=== PATIENT | male | born 1965 | race Caucasian/White ===

== ENCOUNTER 2016-08-12 09:08 | Observation (INO) | payer OTHER ==
[~2016-08-12] VITALS: Ht 175.3 cm; Wt 81.2 kg
[2016-08-12] VITALS (11 sets, daily range): BP systolic 109–206; BP diastolic 75–122; PULSE 71–115; RESP 17–20; TEMP 97.4–98; O2SAT 95–98
[~2016-08-12 09:08] MED LIST: CYCL-36 PO; LORTA5 PO; LOSA25TA31 PO; PANT20 PO
[2016-08-12] MEDS ORDERED: ASPI1TAB69 PO (09:24)
[2016-08-12] MEDS ORDERED: PANT20TA2 PO (09:24)
[2016-08-12] MEDS ORDERED: LOSA25TA PO (09:24)
--- NOTE | 2016-08-12 09:28 | PD ---
HPI Chief Complaint: Chest Pain Time Seen by Provider: 09:17 Travel History International Travel<30 days: No Contact w/Intl Traveler<30days: No Traveled to known affect area: No History of Present Illness HPI This patient complains of chest pain. He is intermittent spells for the last 7 days. Last about 10 minutes and resolved. Describes it as an aching pressure in the left mid chest. No shortness of breath or fever or cough or chest wall injury. He says he had negative stress test 5 years ago. He takes a baby aspirin daily for a carotid ultrasound finding of around 40% blockage but no known coronary issues. Symptoms severity is moderate. No alleviating factors. PFSH Past Medical History Heart Rhythm Problems: No Cardiac Catheterization: Yes Cardiovascular Problems: Yes (HTN) High Cholesterol: Yes Congestive Heart Failure: No Diabetes: No Diminished Hearing: No GERD: Yes Hypertension: Yes Immunizations Current: Yes Influenza Vaccination: No PNEUMOCCOCAL Vaccine (Year): 2 Past Surgical History Coronary Artery Bypass Graft: No Social History Alcohol Use: Yes (0CC) Tobacco Use: Yes (1 PPD) Substance Use: No Allergies-Medications (Allergen,Severity, Reaction): Coded Allergies: Lisinopril (Verified Allergy, Severe, SWELLING, 08/12/16) Reported Meds & Prescriptions Reported Meds & Active Scripts Active Reported Aspirin 81 Mg Tabdr 81 Mg PO DAILY Pantoprazole (Pantoprazole Sodium) 20 Mg Tab 20 Mg PO DAILY Losartan (Losartan Potassium) 25 Mg Tab 25 Mg PO DAILY Review of Systems General / Constitutional: No: Fever Eyes: No: Visual changes HENT: No: Headaches Cardiovascular: Positive: Chest Pain or Discomfort Respiratory: No: Shortness of Breath Gastrointestinal: No: Abdominal Pain Genitourinary: No: Dysuria Musculoskeletal: No: Pain Skin: No Rash Neurologic: No: Weakness Psychiatric: No: Depression Endocrine: No: Polydipsia Hematologic/Lymphatic: No: Easy Bruising Physical Exam Narrative GENERAL: Well-nourished, well-developed patient in no apparent distress. SKIN: Warm and dry. HEAD: Atraumatic. Normocephalic. EYES: Pupils equal and round. No scleral icterus. No injection or drainage. ENT: No nasal bleeding or discharge. Mucous membranes pink and moist. NECK: Trachea midline. No JVD. CARDIOVASCULAR: Regular rate and rhythm. No murmur appreciated. RESPIRATORY: No accessory muscle use. Clear to auscultation. Breath sounds equal bilaterally. GASTROINTESTINAL: Abdomen soft, non-tender, nondistended. Hepatic and splenic margins not palpable. MUSCULOSKELETAL: No obvious deformities. No clubbing. No cyanosis. No edema. NEUROLOGICAL: Awake and alert. No obvious cranial nerve deficits. Motor grossly within normal limits. Normal speech. PSYCHIATRIC: Appropriate mood and affect; insight and judgment normal. Data Data Last Documented VS Vital Signs Date Time Temp Pulse Resp B/P Pulse Ox O2 Delivery O2 Flow Rate FiO2 08/12/16 09:45 96 18 144/93 95 Room Air 08/12/16 09:11 98.0 Orders Electrocardiogram (08/12/16 09:23) Basic Metabolic Panel (Bmp) (08/12/16 09:23) Ckmb (Isoenzyme) Profile (08/12/16:23) Complete Blood Count With Diff (08/12/16 09:23) Prothrombin Time / Inr (Pt) (08/12/16 09:23) Act Partial Throm Time (Ptt) (08/12/16:23) Troponin I (08/12/16 09:23) Chest, Single Ap (08/12/16 09:23) Ecg Monitoring (08/12/16 09:23) Iv Access Insert/Monitor (08/12/16:23) Oximetry (08/12/16:23) Sodium Chloride 0.9% Flush (Ns Flush) (08/12/16 09:30) Clonidine (Catapres) (08/12/16 09:30) CKMB (08/12/16 09:10) CKMB% (08/12/16 09:10) Labs Laboratory Tests Test 08/12/16 09:10 White Blood Count 11.3 TH/MM3 Red Blood Count 5.02 MIL/MM3 Hemoglobin 16.0 GM/DL Hematocrit 47.3 % Mean Corpuscular Volume 94.2 FL Mean Corpuscular Hemoglobin 31.8 PG Mean Corpuscular Hemoglobin 33.7 % Concent Red Cell Distribution Width 13.2 % Platelet Count 200 TH/MM3 Mean Platelet Volume 9.4 FL Neutrophils (%) (Auto) 61.9 % Lymphocytes (%) (Auto) 27.8 % Monocytes (%) (Auto) 8.1 % Eosinophils (%) (Auto) 0.9 % Basophils (%) (Auto) 1.3 % Neutrophils # (Auto) 7.1 TH/MM3 Lymphocytes # (Auto) 3.1 TH/MM3 Monocytes # (Auto) 0.9 TH/MM3 Eosinophils # (Auto) 0.1 TH/MM3 Basophils # (Auto) 0.1 TH/MM3 CBC Comment DIFF FINAL Differential Comment Prothrombin Time 10.0 SEC Prothromb Time International 0.9 RATIO Ratio Activated Partial 31.7 SEC Thromboplast Time Sodium Level 139 MEQ/L Potassium Level 4.2 MEQ/L Chloride Level 105 MEQ/L Carbon Dioxide Level 27.1 MEQ/L Anion Gap 7 MEQ/L Blood Urea Nitrogen 9 MG/DL Creatinine 1.00 MG/DL Estimat Glomerular Filtration 79 ML/MIN Rate Random Glucose 101 MG/DL Calcium Level 9.1 MG/DL Total Creatine Kinase 150 U/L Creatine Kinase MB 2.0 NG/ML Troponin I LESS THAN 0.02 NG/ML MDM Medical Decision Making Medical Screen Exam Complete: Yes Emergency Medical Condition: Yes Medical Record Reviewed: Yes Differential Diagnosis Differential diagnosis includes VA, angina, pericarditis, pleurisy, GERD, anxiety. Narrative Course I have reviewed the patient's electronic medical record. Patient has not been to the ER before, no prior EKGs to compare. IV placed I reviewed the EKG which shows sinus rhythm but no ST elevation I reviewed the chest x-ray which is normal Extended cardiac monitoring shows sinus rhythm without ectopy CBC is normal Metabolic profile is normal CK is normal Troponin is normal Coagulation studies are normal He had an aspirin prior to arrival. I gave him a dose of clonidine for accelerated hypertension of 206 systolic. Blood pressure recheck is 126 systolic. Workup here is negative. He will be a 23 hour observation in the chest pain center in order to rule out cardiac cause of his symptoms. I placed a call to the hospitalist to discuss. Diagnosis Primary Impression: Chest pain in adult Admitting Information Admitting Physician Requests: Observation Mu Pitts MD Aug 12, 2016 09:28
[2016-08-12] MEDS ORDERED: SODIUM CHLORIDE 0.9% FLUSH 5 ML FLUSH IVF PRN ×2 (09:30→10:45)
[2016-08-12] MEDS ORDERED: cloNIDine HCL 0.2 MG TAB PO ONE (09:30)
[2016-08-12 09:35] LABS: AUTOMATED NEUTROPHIL # 7.1 TH/MM3 (1.8-7.7); BASOPHIL # 0.1 TH/MM3 (0-0.2); BASOPHIL % 1.3 % (0.0-2.0); EOSINOPHIL # 0.1 TH/MM3 (0-0.4); EOSINOPHIL % 0.9 % (0.0-4.0); HEMATOCRIT 47.3 % (39.0-51.0); HEMO FLAGS DIFF FINAL; LYMPH % 27.8 % (9.0-44.0); LYMPHOCYTE # 3.1 TH/MM3 (1.0-4.8); MEAN CELL VOLUME 94.2 FL (80.0-100.0); MEAN CORPUSCULAR HEMOGLOBIN 31.8 PG (27.0-34.0); MEAN CORPUSCULAR HGB CONC 33.7 % (32.0-36.0); MONO % 8.1 % (0.0-8.0); NEUT % 61.9 % (16.0-70.0); PLATELET COUNT 200 TH/MM3 (150-450); RED BLOOD COUNT 5.02 MIL/MM3 (4.50-5.90); RED CELL DISTRIBUTION WIDTH 13.2 % (11.6-17.2); WHITE BLOOD COUNT 11.3 TH/MM3 (4.0-11.0)
[2016-08-12 09:50] LABS: APTT (PATIENT) 31.7 SEC (24.3-30.1); BICARBONATE 27.1 MEQ/L (21.0-32.0); INTERNATIONAL NORMALIZED RATIO 0.9 RATIO
[2016-08-12 09:55] LABS: ANION GAP 7 MEQ/L (5-15); CHLORIDE 105 MEQ/L (98-107); POTASSIUM 4.2 MEQ/L (3.5-5.1); SODIUM (NA) 139 MEQ/L (136-145)
[2016-08-12 09:57] LABS: BLOOD UREA NITROGEN 9 MG/DL (7-18); GLOMERULAR FILTRATION RATE 79 ML/MIN (>89)
[2016-08-12 09:59] LABS: CREATINE KINASE 150 U/L (39-308)
--- NOTE | 2016-08-12 10:12 | RADHPO ---
EXAM DATE/TIME: 08/12/2016 09:56 [facility] COMPARISON: No previous studies available for comparison. INDICATIONS : Chest pain, dizziness. MEDICAL HISTORY : None. SURGICAL HISTORY : None. ENCOUNTER: Initial ACUITY: 1 week PAIN SCORE: 2/10 LOCATION: Left chest FINDINGS: A single view of the chest demonstrates the lungs to be symmetrically aerated without evidence of mas s, infiltrate or effusion. The cardiomediastinal contours are unremarkable. Osseous structures are intact. CONCLUSION: No acute disease. Nazario Sun MD FACR on August 12, 2016 at 10:10 Board Certified Radiologist. This report was verified electronically.
[2016-08-12] MEDS ORDERED: MORPHINE SULFATE 4 MG/ML INJ IV PRN (10:45)
[2016-08-12] MEDS ORDERED: ONDANSETRON HCL 4 MG/2 ML VIAL IV PRN (10:45)
[2016-08-12] MEDS ORDERED: NITROGLYCERIN 0.4 MG SL 25 TABS/BTL SL PRN (10:45)
[2016-08-12] MEDS: ENOXAPARIN SODIUM 40 MG/0.4 ML SYRINGE SQ SCH (11:07)
[2016-08-12] MEDS: METOPROLOL TARTRATE 25 MG TAB PO SCH ×2 (11:07→22:19)
[2016-08-12 13:01] LABS: CREATINE KINASE 115 U/L (39-308)
[2016-08-12 13:13] LABS: CKMB 1.4 NG/ML (0.5-3.6)
--- NOTE | 2016-08-12 15:23 | HHI.HP ---
[facility] Service [facility] Primary Care Physician Zackary Evans MD Admission Diagnosis chest pain Diagnoses: (1) Chest pain in adult Diagnosis: Principal (2) Accelerated hypertension Diagnosis: Principal (3) Family history of heart disease Diagnosis: Secondary Chief Complaint: Chest pain Travel History International Travel<30 Days: No Contact w/Intl Traveler <30 Da: No Traveled to Known Affected Are: No History of Present Illness 51 year-old male with known history of hypertension who presented to hospital because of chest pain. Patient states that over the last 45 days he is experiencing intermittent chest discomfort usually starting over on the left lateral chest mid axillary and radiating up into the left anterior chest. He states that the pain is been happening intermittently without any significant incidents with exertion versus rest. He states the pain lasted for a couple seconds at a time and goes away. He did have the pain as previously stated 45 days, however today when he is at work he got associated lightheadedness and dizziness and his hands were tremoring. Because of the additional symptoms he decided come to the hospital for evaluation. He denied any nausea, vomiting, diaphoresis, shortness of breath, dyspnea. Patient has had cardiac workup done in the past with stress test last one was 7 years ago which was normal. Patient has had a cardiac catheterization done in 2002 which did show normal coronary arteries. Patient had workup done emergency department and essentially unremarkable on presentation. Is recommended by ER physician patient be observed in the hospital for chest pain center for further evaluation. Review of Systems Constitutional: COMPLAINS OF: Dizziness, DENIES: Diaphoretic episodes, Fatigue , Fever, Weight gain, Weight loss, Chills, Change in appetite, Night Sweats Eyes: DENIES: Blurred vision, Diplopia, Eye inflammation, Eye pain, Vision loss , Photosensitivity, Double Vision Ears, nose, mouth, throat: DENIES: Vertigo, Nasal discharge, Throat pain, Ear Pain, Running Nose, Sinus Pain Respiratory: DENIES: Apneas, Cough, Snoring, Wheezing, Hemoptysis, Sputum production, Shortness of breath Cardiovascular: COMPLAINS OF: Chest pain, DENIES: Palpitations, Syncope, Dyspnea on Exertion, PND, Lower Extremity Edema, Orthopnea, Claudication Gastrointestinal: DENIES: Abdominal pain, Black stools, Bloody stools, Constipation, Diarrhea, Nausea, Vomiting, Difficulty Swallowing, Anorexia Neurologic: DENIES: Abnormal gait, Headache, Localized weakness, Paresthesias, Seizures, Speech Problems, Tremor, Poor Balance Past Family Social History Past Medical History Hypertension Past Surgical History Right ulnar nerve surgery Reported Medications Reported Meds & Active Scripts Active Reported Aspirin 81 Mg Tabdr 81 Mg PO DAILY Pantoprazole (Pantoprazole Sodium) 20 Mg Tab 20 Mg PO DAILY Losartan (Losartan Potassium) 25 Mg Tab 25 Mg PO DAILY Allergies: Coded Allergies: Lisinopril (Verified Allergy, Severe, SWELLING, 08/12/16) Family History Reviewed and significant for father having heart attack Social History Patient smokes a pack a cigarettes a day since he was 17 years old. He does drink 45 beers daily. Denies any illicit drugs Physical Exam Vital Signs Vital Signs Date Time Temp Pulse Resp B/P Pulse Ox O2 Delivery O2 Flow Rate FiO2 08/12/16 14:00 98.0 71 20 140/96 97 08/12/16 13:46 73 17 123/90 96 Room Air 08/12/16 12:15 78 18 109/75 97 Room Air 08/12/16 11:45 78 18 110/80 95 Room Air 08/12/16 11:15 86 18 120/83 97 Room Air 08/12/16 11:05 96 Room Air 08/12/16 10:45 94 18 112/87 96 Room Air 08/12/16 10:15 86 18 112/87 95 Room Air 08/12/16 09:45 96 18 144/93 95 Room Air 08/12/16 09:24 98 Room Air 08/12/16 09:17 100 96 Room Air 08/12/16 09:11 98.0 115 18 206/122 98 Physical Exam GENERAL: Well-developed, well-nourished, in no acute distress. alert and orientated HEENT: Head is normocephalic without any lesions or masses noted. Facial features are symmetric. Eyes: Pupils equal round reactive to light. Extraocular muscles are intact. Conjunctivae were clear. Oropharyngeal: Pharynx without any erythema edema. Tongue is midline without deviation. Buccal mucosa is moist without any masses or lesions NECK: Supple without any masses. Trachea midline no deviation. No JVD, no bruits are appreciated CARDIAC: Regular rhythm, regular rate. S1/S2 are heard. No murmurs gallops or rubs. LUNGS: Clear to auscultation bilaterally. No wheeze, rhonchi or rales. No use of accessory muscles on inspiration or expiration. ABDOMEN: Soft, nontender. Nondistended. Bowel sounds heard in all 4 quadrants. No organomegaly or masses. Negative rebound, negative guarding EXTREMITIES: No edema, pulses are equal bilaterally. No cyanosis or clubbing NEUROLOGY: Mood and affect appear appropriate. Cranial nerves II through XII grossly intact. Muscle strength 5/5 in upper and lower extremities bilaterally. Deep tendon reflexes are 2+ in upper and lower extremities bilaterally. Laboratory Laboratory Tests Test 08/12/16 08/12/16 09:10 12:30 White Blood Count 11.3 Red Blood Count 5.02 Hemoglobin 16.0 Hematocrit 47.3 Mean Corpuscular Volume 94.2 Mean Corpuscular Hemoglobin 31.8 Mean Corpuscular Hemoglobin 33.7 Concent Red Cell Distribution Width 13.2 Platelet Count 200 Mean Platelet Volume 9.4 Neutrophils (%) (Auto) 61.9 Lymphocytes (%) (Auto) 27.8 Monocytes (%) (Auto) 8.1 Eosinophils (%) (Auto) 0.9 Basophils (%) (Auto) 1.3 Neutrophils # (Auto) 7.1 Lymphocytes # (Auto) 3.1 Monocytes # (Auto) 0.9 Eosinophils # (Auto) 0.1 Basophils # (Auto) 0.1 CBC Comment DIFF FINAL Differential Comment Prothrombin Time 10.0 Prothromb Time International 0.9 Ratio Activated Partial 31.7 Thromboplast Time Sodium Level 139 Potassium Level 4.2 Chloride Level 105 Carbon Dioxide Level 27.1 Anion Gap 7 Blood Urea Nitrogen 9 Creatinine 1.00 Estimat Glomerular Filtration 79 Rate Random Glucose 101 Calcium Level 9.1 Total Creatine Kinase 150 115 Creatine Kinase MB 2.0 1.4 Troponin I LESS THAN 0.02 LESS THAN 0.02 Result Diagram: 08/12/1610 08/12/16909 Imaging Last Impressions Chest X-Ray 08/12/16922 Signed Impressions: Service Date/Time: Friday, August 12, 2016 09:56 - CONCLUSION: No acute disease. Nazario Sun MD FACR Assessment and Plan Assessment and Plan Chest pain Patient with increased risk factors to include hypertension, tobacco use, family history of heart disease Continue to trend cardiac enzymes rule out any acute coronary event Continue monitor serial EKGs to evaluate for any changes We'll pursue exercise stress test and that a.m. if ruled out for acute coronary event Continue aspirin and nitroglycerin as needed Accelerated hypertension Continue home medications Started Lopressor 25 mg twice daily Tobacco use Counseled on cessation DVT prevention Low risk, early ambulation Written by Mu Dao PA-C, acting as scribe for Dr. Clay on 08/12/16 at 1600. The documentation accurately reflects the work and decisions performed face-to- face by Dr. Clay on 08/12/16 at 1600. Mu Dao Aug 12, 2016 15:23 Qualified Code: I15.9 - Secondary hypertension Mu Dao Aug 12, 2016 15:23
[2016-08-12 15:45] LABS: CREATINE KINASE 112 U/L (39-308)
[2016-08-12 15:58] LABS: CKMB 1.4 NG/ML (0.5-3.6)
[2016-08-12] MEDS ORDERED: TEMAZEPAM 15 MG CAP PO PRN (16:15)
[2016-08-12] MEDS: SODIUM CHLORIDE 0.9% FLUSH 5 ML FLUSH IVF SCH (20:28)
[2016-08-13] VITALS: BP 118/82; PULSE 70; RESP 18; TEMP 95.9; O2SAT 96
[2016-08-13 04:00] VITALS: BP 134/94; PULSE 76; RESP 18; TEMP 95.6; O2SAT 98
[2016-08-13 08:00] VITALS: BP 131/85; PULSE 78; PULSE 79; RESP 18; TEMP 97.4; O2SAT 98
[2016-08-13] MEDS: SODIUM CHLORIDE 0.9% FLUSH 5 ML FLUSH IVF SCH (08:36)
[2016-08-13 08:55] VITALS: O2SAT 98
[2016-08-13] MEDS ORDERED: ASPIRIN 325 MG TAB PO SCH (09:00)
--- NOTE | 2016-08-13 09:07 | HHI.PR ---
Subjective Remarks Patient seen and examined today with Dr. Clay. Patient denies any recurrent chest discomfort. Patient denies any new complaints. Patient very eager to perform stress test and go home Objective Vitals Vital Signs Date Time Temp Pulse Resp B/P Pulse Ox O2 Delivery O2 Flow Rate FiO2 08/13/16 08:55 98 21 08/13/16 08:00 97.4 78 18 131/85 98 08/13/16 04:00 95.6 76 18 134/94 98 08/13/16 00:00 95.9 70 18 118/82 96 08/12/16 20:00 96 21 08/12/16 20:00 78 08/12/16 20:00 97.4 77 18 120/97 95 08/12/16 14:00 97 21 08/12/16 14:00 98.0 71 20 140/96 97 08/12/16 13:46 73 17 123/90 96 Room Air 08/12/16 12:15 78 18 109/75 97 Room Air 08/12/16 11:45 78 18 110/80 95 Room Air 08/12/16 11:15 86 18 120/83 97 Room Air 08/12/16 11:05 96 Room Air 08/12/16 10:45 94 18 112/87 96 Room Air 08/12/16 10:15 86 18 112/87 95 Room Air 08/12/16 09:45 96 18 144/93 95 Room Air 08/12/16 09:24 98 Room Air 08/12/16 09:17 100 96 Room Air 08/12/16 09:11 98.0 115 18 206/122 98 I/O 08/12/16 08/12/16 08/12/16 08/13/16 08/13/16 08/13/16 07:00 15:00 23:00 07:00 15:00 23:00 Intake Total 500 ml Output Total 450 ml 600 ml Balance -450 ml -100 ml Intake Oral 500 ml Output Urine Total 450 ml 600 ml # Bowel Movements 0 Result Diagram: 08/12/16 0910 08/12/16 0910 Objective Remarks GENERAL: Well-developed, well-nourished, in no acute distress. alert and orientated HEENT: Head is normocephalic without any lesions or masses noted. Facial features are symmetric. Eyes: Extraocular muscles are intact. Conjunctivae were clear. NECK: Supple without any masses. Trachea midline no deviation. No JVD, CARDIAC: Regular rhythm, regular rate. S1/S2 are heard. No murmurs gallops or rubs. LUNGS: Clear to auscultation bilaterally. No wheeze, rhonchi or rales. No use of accessory muscles on inspiration or expiration. ABDOMEN: Soft, nontender. Nondistended. Bowel sounds heard in all 4 quadrants. No organomegaly or masses. Negative rebound, negative guarding EXTREMITIES: No edema, pulses are equal bilaterally. No cyanosis or clubbing NEUROLOGY: Mood and affect appear appropriate. Cranial nerves II through XII grossly intact. Moving all extremities, speech is clear Urinary Catheter: No Vascular Central Line Catheter: No A/P Assessment and Plan Chest pain, resolved Patient with increased risk factors to include hypertension, tobacco use, family history of heart disease Serial cardiac enzymes were performed and reviewed by myself which were negative did not indicate any acute urinary event Serial EKGs were performed and reviewed by myself which shows sinus rhythm without any changes Exercise stress test was performed and did not indicate any ischemia Continue aspirin and nitroglycerin as needed Accelerated hypertension, improved Continue home medications Lopressor 25 mg twice daily Tobacco use Counseled on cessation DVT prevention Low risk, early ambulation Written by Mu Dao PA-C, acting as scribe for Dr. Clay on 08/13/16 at 1305. The documentation accurately reflects the work and decisions performed face-to- face by Dr. Clay on 08/13/16 at 1305. Discharge Planning Discharge home in stable condition Activity: Ad miguel. Diet: Healthy heart diet Medications per medication reconciliation Follow-up with primary medical doctor in one week Mu Dao Aug 13, 2016 09:07
[2016-08-13] MEDS: METOPROLOL TARTRATE 25 MG TAB PO SCH (10:45)
[2016-08-13] MEDS: ENOXAPARIN SODIUM 40 MG/0.4 ML SYRINGE SQ SCH (11:00)
--- NOTE | 2016-08-13 11:45 | EKG ---
Date Performed: 08/12/2016 Time Performed: 09:13:06 PTAGE: 51 years EKG: Sinus tachycardia Normal ECG except for rate PREVIOUS TRACING : 07/28/2012 20.13 DOCTOR: Gunnar Peters Interpretating Date/Time 08/13/2016 11:43:55
--- NOTE | 2016-08-13 11:45 | EKG ---
Date Performed: 08/12/2016 Time Performed: 10:59:06 PTAGE: 51 years EKG: Sinus rhythm Normal ECG PREVIOUS TRACING : 08/12/2016 09.13 DOCTOR: Gunnar Peters Interpretating Date/Time 08/13/2016 11:44:40
--- NOTE | 2016-08-13 11:49 | EKG ---
Date Performed: 08/12/2016 Time Performed: 15:05:44 PTAGE: 51 years EKG: Sinus rhythm . ST-segment elevation leads V2-V5 may be due to early repolarization BORDERLINE ECG PREVIOUS TRACING : 08/12/2016 10.59 DOCTOR: Gunnar Peters Interpretating Date/Time 08/13/2016 11:47:37
[2016-08-13 12:00] VITALS: BP 125/91; PULSE 78; RESP 18; TEMP 97; O2SAT 98
--- NOTE | 2016-08-13 12:02 | TR ---
Date Performed: 08/13/2016 Time Performed: 11:15:50 DOCTOR: Gunnar Peters DRUG LIST: CLINICAL HISTORY: CHEST PAIN REASON FOR TEST: Chest pain. REASON FOR ENDING: Completed Protocol OBSERVATION: Chest Pain: None Arrhythmia: None CONCLUSION: Patient tolerated ARAM protocol with Total Exercise Time=9:01 Maximum QV=299 % % Ta rget HR Kcppmvul=297.0% Maximum OM=097/90, Testing stopped secondary to goals acheived, Patient reach ed target HR. Good exercise tolerance. During peak exercise, patient was asymptomatic, no significan t ST depressions, quick upsloping ST segments. Hypertensive response to exercise. Recovery period, p atient was asymptomatic, blood pressure improved but remained mildly elevated. COMMENTS: CONCLUSION: Normal exercise treadmill. No evidence of ischemia.
[2016-08-13] MEDS ORDERED: METO25TA3 PO (12:53)
--- NOTE | 2016-08-13 12:54 | HHI.DCPOC ---
Discharge Care Plan Diagnosis: (1) Chest pain in adult (2) Accelerated hypertension Goals to Promote Your Health * To prevent worsening of your condition and complications * To maintain your health at the optimal level Directions to Meet Your Goals Take your medications as prescribed Follow your dietary instruction Follow activity as directed Keep your appointments as scheduled Take your immunizations and boosters as scheduled If your symptoms worsen call your PCP, if no PCP go to Urgent Care Center or Emergency Room Smoking is Dangerous to Your Health. Avoid second hand smoke Call the 24-hour hour crisis hotline for domestic abuse at Mu Dao Aug 13, 2016 12:54
== END 2016-08-13 13:05 | disposition home or self-care (01) ==
LOC: PHED 09:08 → PHEDA 11:13 → PH3A 14:05
PROVIDERS: ADMIT Family Medicine; ATTEND Family Medicine
DX: R07.9 Chest pain, unspecified (principal); I10 Essential (primary) hypertension; R94.31 Abnormal electrocardiogram [ECG] [EKG]; K21.9 Gastro-esophageal reflux disease without esophagitis; E78.00 Pure hypercholesterolemia, unspecified; F17.200 Nicotine dependence, unspecified, uncomplicated; Z79.82 Long term (current) use of aspirin; Z82.49 Family history of ischemic heart disease and other diseases of the circulatory system
CPT/HCPCS: 71010; 80048; 82550; 82552; 84484; 85025; 85610; 85730; 93005; 93017; 99285; G0378; J1650